=== PATIENT | male | born 1940 | race Caucasian/White ===

== ENCOUNTER 2022-04-20 10:46 | Emergency (ER) | payer OTHER, MEDICARE ==
[2022-04-20 11:00] VITALS: BP 131/76; PULSE 71; RESP 18; TEMP 97.7; BMI 28.7
[2022-04-20] MEDS ORDERED: BEBTELOVIMAB (EUA) 175 MG/2 ML VIAL IVPUSH ONE (13:00)
== END 2022-04-20 15:30 | disposition home or self-care (01) ==
LOC: JCOVINFU 10:46
DX: U07.1 COVID-19 (principal)
CPT/HCPCS: 96374; 99284-25; M0222; Q0222